=== PATIENT | female | born 1965 | race African-American/Black ===

== ENCOUNTER 2019-07-07 22:39 | Inpatient (IN) | payer MEDICARE, OTHER ==
[~2019-07-07] VITALS: Ht 170.2 cm; Wt 59.0 kg
[2019-07-07 23:18] LABS: BASOPHILS # (AUTO) 0.1 /CMM (0.0-0.2); BASOPHILS % (AUTO) 0.6 % (0.0-2.0); EOSINOPHILS % (AUTO) 0.2 % (0.0-6.0); HEMATOCRIT 36 % (33-45); LYMPHOCYTES # (AUTO) 2.9 /CMM (0.8-4.8); MEAN CORPUSCULAR HGB CONC 33 g/dl (31.0-36.0); MEAN CORPUSCULAR VOLUME 93 fL (82-100); MONOCYTES # (AUTO) 0.8 /CMM (0.1-1.30); MONOCYTES % (AUTO) 6.5 % (2.0-12.0); NEUTROPHILS # (AUTO) 7.9 /CMM (1.8-8.9); NEUTROPHILS % (AUTO) 67.7 % (43.0-81.0); PLATELET COUNT (AUTO) 210 /CMM (150-450); RED BLOOD CELL COUNT(AUTO) 3.89 MIL/uL (4.0-5.2); WHITE BLOOD COUNT (AUTO) 11.7 K/uL (4.3-11.0)
[2019-07-07] MEDS ORDERED: LORAZEPAM 1 MG TABLET ONE (23:18)
--- NOTE | 2019-07-07 23:20 | NUR ---
PATIENT BIB EMS FOR MEDICAL CLEARANCE FOR GERIATRIC PSYCHIATRIC ADMISSION. PATIENT IS PLACED ON A 5150 FOR DTS AND GRAVELY DISABLED. PT DENIES SUICIDAL THOUGHTS NOR DOES SHE HAVE A PLAN. PT HAS HX OF BIPOLAR DISORDER AND IS TAKING MEDICATIONS FOR IT. AAOX2. PATIENT IS ANXIOUS. NO SOB. BREATHING EVENLY AND UNLABORED. CONNECTED TO MONITOR
[2019-07-07 23:26] LABS: CALCIUM, SERUM 9.6 mg/dL (8.5-10.1); CARBON DIOXIDE 25 mmol/L (21-32); CHLORIDE 104 mmol/L (98-107); CREATININE 1.1 mg/dL (0.6-1.3); GLUCOSE 100 mg/dL (74-106); POTASSIUM 3.6 mmol/L (3.5-5.1); SODIUM SERUM 142 mmol/L (136-145); UREA NITROGEN, BLOOD 16 mg/dL (7-18)
[2019-07-07] MEDS ORDERED: LORAZEPAM 1 MG TABLET PO ONE (23:30)
--- NOTE | 2019-07-07 23:30 | NUR ---
PATIENT IS CURRENTLY UNABLE TO PROVIDE A URINE SAMPLE.
[2019-07-07 23:31] LABS: ACETAMINOPHEN 0 ug/ml (10-30); ALANINE AMINOTRANSFERASE 27 U/L (12-78); ALCOHOL, BLOOD < 3 mg/dL (0-0); ALKALINE PHOSPHATASE 78 U/L (46-116); ASPARTATE AMINOTRANSFERASE 52 U/L (15-37); BILIRUBIN,DIRECT 0.2 mg/dL (0.0-0.2); BILIRUBIN,TOTAL 0.8 mg/dL (0.2-1.0); SALICYLATE 2.3 mg/dL (2.8-20.0); TOTAL PROTEIN, SERUM 7.4 g/dL (6.4-8.2)
--- NOTE | 2019-07-07 23:52 | NUR ---
URINE RETRIEVED AND SENT TO LAB
[2019-07-07 23:55] LABS: BILIRUBIN,URINE MODERATE (NEGATIVE); BLOOD, URINE Trace-intact Ery/uL (NEGATIVE); COLOR,URINE Dark (YELLOW); KETONES,URINE 15 (NEGATIVE); LEUKOCYTE ESTERASE ,URINE Negative (NEGATIVE); NITRITE, URINE Negative (NEGATIVE); PROTEIN,URINE 30 mg/dl (NEGATIVE); UGLUCOSE Negative (NEGATIVE)
[2019-07-07 23:56] LABS: APPEARANCE,URINE CLOUDY (CLEAR)
[2019-07-08] MEDS ORDERED: LORAZEPAM 1 MG TABLET PO ONE
[2019-07-08] MEDS ORDERED: LORAZEPAM 1 MG TABLET ONE (00:06)
[2019-07-08] MEDS ORDERED: CLONIDINE HCL 0.1 MG TABLET PO PRN (00:30)
--- NOTE | 2019-07-08 00:32 | NUR ---
Report given Novem RN for sonali.
[2019-07-08 01:00] VITALS: BP 158/81
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
[2019-07-08 01:14] LABS: BACTERIA,URINE Few /HPF (None Seen); SQUAMOUS EPITHELIAL CELL,UR Few /HPF (None Seen)
[2019-07-08] MEDS ORDERED: MAG HYDROX/AL HYDROX/SIMETH 30 ML UDC PO PRN (01:30)
[2019-07-08] MEDS ORDERED: ACETAMINOPHEN 325 MG TABLET PO PRN (01:30)
[2019-07-08] MEDS ORDERED: BLOOD SUGAR DIAGNOSTIC 1 EACH STRIP IN ONE (01:30)
[2019-07-08] MEDS ORDERED: MAGNESIUM HYDROXIDE 30 ML UDC PO PRN (01:30)
[2019-07-08] MEDS ORDERED: LORAZEPAM 0.5 MG TABLET PO PRN (01:30)
[2019-07-08] MEDS: AMLODIPINE BESYLATE 5 MG TABLET PO SCH ×2 (01:38→08:19)
[2019-07-08] MEDS ORDERED: HALO0.5T2 PO (04:40)
[2019-07-08] MEDS ORDERED: DIVA500T2 PO ×2 (04:40)
[2019-07-08] MEDS ORDERED: RISP0.5T5 PO (04:40)
[2019-07-08] MEDS ORDERED: IPRA12.9 INH (04:52)
[2019-07-08 08:00] VITALS: BP 157/80
--- NOTE | 2019-07-08 15:38 | NUR ---
Family Contact: SW contacted the pts son, Marcelo ([phone]), but the number was not authorized.
[2019-07-08 16:00] VITALS: BP 165/67
--- NOTE | 2019-07-08 16:12 | NUR ---
Initial Discharge Plan: Pt currently resides at [address] [place] [address], [address] [place] [address]; ([phone]) with her two sons. Per pt, she would like to live in a facility. SW will work with the pt and the MD regarding appropriate discharge planning. SW will form a safe and proper discharge.
[2019-07-08] MEDS: risperiDONE 1 MG TABLET PO SCH (16:15)
[2019-07-08 20:00] VITALS: BP 143/81
[2019-07-08 20:14] VITALS: BP 143/81
[2019-07-08] MEDS: LORAZEPAM 0.5 MG TABLET PO PRN (20:42)
--- NOTE | 2019-07-08 20:42 | NUR ---
senior courtroom clerk notes pt looked anxious , ativan 1 mg po given as ordered, re-oriented where she at .assisted back to her bed safety precaution implemented and observed. will continue monitoring.
[2019-07-08] MEDS: ZOLPIDEM TARTRATE 5 MG TABLET PO PRN (21:31)
[2019-07-08] MEDS: DIVALPROEX SODIUM 500 MG TABLET.DR PO SCH (21:31)
[2019-07-09] MEDS: LORAZEPAM 0.5 MG TABLET PO PRN (03:39)
--- NOTE | 2019-07-09 03:39 | NUR ---
spar cap beveler notes pt woke up and seem very anxious, re-direct and re-oriented where she at. Ativan 1 mg po given as ordered. will continue monitoring. safety precaution implemented and observed.
--- NOTE | 2019-07-09 04:52 | NUR ---
PESTICIDE USE MEDICAL COORDINATOR NOTES CHECKED PT IN HER ROOM AND SEEN SLEEPING AT THIS TIME AFTER ATIVAN GIVEN ORDERED. BREATHING EVEN AND NON-LABORED. KEPT HER WARM AND COMFORTABLE AT ALL TIMES. WILL CONTINUE MONITORING.
[2019-07-09 08:00] VITALS: BP 155/73
[2019-07-09] MEDS: risperiDONE 1 MG TABLET PO SCH ×2 (08:21→17:04)
[2019-07-09] MEDS: DIVALPROEX SODIUM 500 MG TABLET.DR PO SCH ×2 (08:21→20:34)
[2019-07-09] MEDS: AMLODIPINE BESYLATE 5 MG TABLET PO SCH (08:21)
[2019-07-09] MEDS: SERTRALINE HCL 25 MG TABLET PO SCH (08:22)
[2019-07-09 09:52] LABS: CHOLESTEROL 200 mg/dL (<200); HDL CHOLESTEROL 77 mg/dL (40-60); LDL 98 mg/dL (0-99); TRIGLYCERIDES 60 mg/dL (30-150)
--- NOTE | 2019-07-09 11:22 | NUR ---
Family Contact: SW called the pts daughter in law, Catalina ([phone]), and left a voicemail stating that the SW would like to speak to her regarding the pts discharge and treatment.
--- NOTE | 2019-07-09 12:05 | NUR ---
Family Contact: Pts daughter in law, Catalina ([phone]), called the SW and stated that the pt was previously at [facility] and that they would like the pt to return there for a few months for further stabilization.
[2019-07-09 16:00] VITALS: BP 120/76
[2019-07-09 20:34] VITALS: BP 137/66
[2019-07-09] MEDS: ZOLPIDEM TARTRATE 5 MG TABLET PO PRN (21:11)
--- NOTE | 2019-07-09 21:26 | NUR ---
GPS RN NOTES: PT UNABLE TO SLEEP. OFFERED AMBIEN 5MG PO PRN ORDERED. PT AGREED AND TOLERATED MEDICATION. CONTINUE TO MONITOR.
[2019-07-10] MEDS: LORAZEPAM 0.5 MG TABLET PO PRN ×2 (03:39→13:04)
--- NOTE | 2019-07-10 03:42 | NUR ---
GPS RN NOTES: PT WOKE UP. WALKING BACK AND FORTH IN HER ROOM SPEAKING RANDOM WORDS THAT IS HARD TO COMPREHEND. PT SEEMED ANXIOUS. REDIRECTED AND REORIENTED WHERE SHE IS AT. ATIVAN 1MG PRN PO ADMINISTERED ORDERED. WILL CONTINUE TO MONITOR.
[2019-07-10 08:00] VITALS: BP 126/63
[2019-07-10] MEDS: risperiDONE 1 MG TABLET PO SCH ×2 (08:06→17:41)
[2019-07-10] MEDS: SERTRALINE HCL 25 MG TABLET PO SCH (08:06)
[2019-07-10] MEDS: AMLODIPINE BESYLATE 5 MG TABLET PO SCH (08:07)
[2019-07-10] MEDS: DIVALPROEX SODIUM 500 MG TABLET.DR PO SCH ×2 (08:07→20:51)
[2019-07-10] MEDS ORDERED: VITAMINS A AND D 56.7 GM TUBE TP PRN (09:30)
--- NOTE | 2019-07-10 10:46 | NUR ---
SNF Referral: SW faxed a long term facility (SNF) referral to the following facilities listed below: [facility] with attention to Riaz to the fax number: [phone] [facility] with attention to Bobby to the fax number: [phone].
--- NOTE | 2019-07-10 13:05 | NUR ---
RN NOTE- PT WITH AGITATION. MILD. FEELING "NOT QUITE RIGHT..." ATIVAN 1 MG PO PRN GIVEN.
--- NOTE | 2019-07-10 15:07 | NUR ---
Individual Intervention: SW spoke to the pt regarding her discharge to a fpc facility and the pt stated that [facility] had "too many old people" and therefore she would like a facility that is different and that Dr. eGrardo attends. NICKO stated that she would speak to the MD.
[2019-07-10 16:00] VITALS: BP 125/66
[2019-07-10] MEDS: ZOLPIDEM TARTRATE 5 MG TABLET PO PRN (20:51)
--- NOTE | 2019-07-10 20:53 | NUR ---
GPS RN NOTES: PT UNABLE TO SLEEP. OFFERED AMBIEN 5MG PO PRN ORDERED. PT AGREED AND TOLERATED MEDICATION. CONTINUE TO MONITOR.
[2019-07-10 21:00] VITALS: BP 135/66
[2019-07-11] MEDS: LORAZEPAM 0.5 MG TABLET PO PRN ×2 (03:52→12:34)
--- NOTE | 2019-07-11 03:55 | NUR ---
GPS RN NOTES: PT WOKE UP. WALKING BACK AND FORTH IN HER ROOM AND THE IN THE HALLWAY. PT IS GOING IN AND OUT OF OTHER PTS ROOM. SPEAKING RANDOM WORDS THAT IS HARD TO COMPREHEND. PT REPEATS WORDS WHEN SPOKEN TO. PT SEEMED ANXIOUS. REDIRECTED AND REORIENTED WHERE SHE IS AT. ATIVAN 1MG PRN PO ADMINISTERED ORDERED. WILL CONTINUE TO MONITOR.
[2019-07-11] MEDS: AMLODIPINE BESYLATE 5 MG TABLET PO SCH (08:21)
[2019-07-11] MEDS: DIVALPROEX SODIUM 500 MG TABLET.DR PO SCH ×2 (08:22→21:08)
[2019-07-11] MEDS: SERTRALINE HCL 25 MG TABLET PO SCH (08:22)
[2019-07-11] MEDS: risperiDONE 1 MG TABLET PO SCH ×2 (08:22→16:20)
[2019-07-11 16:00] VITALS: BP 124/81
[2019-07-11 20:10] VITALS: BP 131/51
[2019-07-11] MEDS: ZOLPIDEM TARTRATE 5 MG TABLET PO PRN (21:09)
[2019-07-12 08:00] VITALS: BP 134/71
[2019-07-12] MEDS: risperiDONE 1 MG TABLET PO SCH ×2 (08:23→16:53)
[2019-07-12] MEDS: DIVALPROEX SODIUM 500 MG TABLET.DR PO SCH ×2 (08:23→21:22)
[2019-07-12] MEDS: SERTRALINE HCL 25 MG TABLET PO SCH (08:23)
[2019-07-12] MEDS: AMLODIPINE BESYLATE 5 MG TABLET PO SCH (08:23)
[2019-07-12] MEDS: LORAZEPAM 0.5 MG TABLET PO PRN ×2 (12:41→22:27)
--- NOTE | 2019-07-12 12:44 | NUR ---
RN NOTE- PT PACING HALLS, GARBLED SPEECH, WORD SALAD AT TIMES. ANXIOUS. AH PRESENT AND ADMITTED... THOUGH UNKNOWN CONTENT. WONT ELABORATE. ATIVAN 1 MG PO GIVEN . MONITORING
[2019-07-12 16:00] VITALS: BP 130/86
[2019-07-12 20:01] VITALS: BP 162/75
[2019-07-12 22:15] VITALS: BP 137/77
--- NOTE | 2019-07-12 22:30 | NUR ---
GPS RN NOTE PATIENT IS PACING IN THE HALLWAY ANXIOUSLY, ATIVAN 1 MG PRN GIVEN. WILL MONITOR CLOSELY.
[2019-07-12] MEDS: ZOLPIDEM TARTRATE 5 MG TABLET PO PRN (23:37)
--- NOTE | 2019-07-12 23:41 | NUR ---
PRN AMBIEN GIVEN PATIENT IS UNABLE TO SLEEP AT THIS TIME, KEEP PACING THE HALLWAY CONSISTENTLY. PRN AMBIEN 5MG PRN GIVEN. WILL REASSESS FOR EFFECTIVENESS.
[2019-07-13 08:00] VITALS: BP 115/63
[2019-07-13] MEDS: risperiDONE 1 MG TABLET PO SCH ×2 (09:13→16:04)
[2019-07-13] MEDS: AMLODIPINE BESYLATE 5 MG TABLET PO SCH (09:14)
[2019-07-13] MEDS: SERTRALINE HCL 25 MG TABLET PO SCH (09:14)
[2019-07-13] MEDS: LORAZEPAM 0.5 MG TABLET PO PRN (09:14)
[2019-07-13] MEDS: DIVALPROEX SODIUM 500 MG TABLET.DR PO SCH ×2 (09:14→20:51)
--- NOTE | 2019-07-13 15:39 | NUR ---
Group Note: SW went to patient's room to invite patient to attend today's support group at 1:00pm regarding holiday sensory activity being held in the activities room. Patient refused to participate in the group activity. The pt. is restless, anxious and pacing the halls. The pt. would come into the activities room and engage in the group conversation sporadically for short periods of time.
[2019-07-13 16:00] VITALS: BP 128/64
[2019-07-13 20:28] VITALS: BP 164/83
[2019-07-13 20:49] VITALS: BP 120/65
[2019-07-14 08:00] VITALS: BP 152/74
--- NOTE | 2019-07-14 08:46 | NUR ---
SNF Contact: Alba ([phone]) from [facility] contacted the SW and stated that the pt was accepted to their facility.
[2019-07-14] MEDS: LORAZEPAM 0.5 MG TABLET PO PRN (09:28)
[2019-07-14] MEDS: risperiDONE 1 MG TABLET PO SCH ×2 (09:29→16:50)
[2019-07-14] MEDS: SERTRALINE HCL 25 MG TABLET PO SCH (09:29)
[2019-07-14] MEDS: DIVALPROEX SODIUM 500 MG TABLET.DR PO SCH ×2 (09:29→20:47)
[2019-07-14] MEDS: AMLODIPINE BESYLATE 5 MG TABLET PO SCH (09:29)
--- NOTE | 2019-07-14 13:23 | NUR ---
Family Contact: SW called the pts daughter in law, Catalina ([phone]), and informed her that the pt is going to be discharged to [facility] tomorrow. She agreed to the placement.
[2019-07-14 16:00] VITALS: BP 156/60
[2019-07-14 16:43] VITALS: BP 156/60
[2019-07-14 20:43] VITALS: BP 147/61
[2019-07-14] MEDS: ZOLPIDEM TARTRATE 5 MG TABLET PO PRN (22:57)
--- NOTE | 2019-07-14 23:00 | NUR ---
GPS RN NOTES: PT UNABLE TO SLEEP. OFFERED AMBIEN 5MG PO PRN ORDERED. PT AGREED AND TOLERATED MEDICATION. CONTINUE TO MONITOR.
[2019-07-15 08:00] VITALS: BP 115/66
[2019-07-15 10:01] VITALS: BP 115/66
[2019-07-15] MEDS: risperiDONE 1 MG TABLET PO SCH (10:01)
[2019-07-15] MEDS: DIVALPROEX SODIUM 500 MG TABLET.DR PO SCH (10:01)
[2019-07-15] MEDS: SERTRALINE HCL 25 MG TABLET PO SCH (10:01)
[2019-07-15] MEDS: AMLODIPINE BESYLATE 5 MG TABLET PO SCH (10:01)
--- NOTE | 2019-07-15 12:01 | NUR ---
Discharge Note: Pt was discharged to [facility] (SNF) [place] at [address] [place] [address]; ([phone]). Pt was transported via [facility] at 2PM. Pts daughter in law, Catalina ([phone]), was notified of the placement. Upon discharge, the pt presented with a euthymic mood and presented with a distressed affect. Pt denied both suicidal and homicidal ideation as well as auditory and visual hallucinations. Pt will continue to be under the care of her psychiatrist, Dr. Gerardo, located at [address], [place] [address]; and her sweeper operator highways, Dr. Phillips, located at [address] [address], [address], [place] [address], .
--- NOTE | 2019-07-15 13:20 | NUR ---
53 year old female discharged to SNF in stable condition. Compliant with medications, cooperative with treatment plans. Patient denies SI/HI and instructed to go to the closest ER if developing SI/HI. Behavior improved as evidenced by patient eating full meals, sleeping throughout the night and being compliant with medications. Psychiatric treatment plans met, medical tx plans deferred for continual monitoring. Educated patient about after care plan and copy provided. Returned personal belongings to patient. Medications reconciled with Dr. Gerardo and Dr. Phillips. Report given to [facility] located at [address] [place] [address]. Patient signed discharge paperwork. Skin is intact. Patient left the unit at 1310 via ambulance. trip number [id number]
== END 2019-07-15 13:10 | DRG 885 ==
LOC: ER 22:48 → GPS 07-08 00:04
PROVIDERS: ADMIT Psychiatry & Neurology Psychiatry; ATTEND Nurse Practitioner Acute Care
DX: F25.0 Schizoaffective disorder, bipolar type (principal); R45.851 Suicidal ideations; F41.9 Anxiety disorder, unspecified; I10 Essential (primary) hypertension; E78.5 Hyperlipidemia, unspecified; Z91.19 Patient's noncompliance with other medical treatment and regimen; Z81.8 Family history of other mental and behavioral disorders
CPT/HCPCS: 36415; 80048-TC; 80061-TC; 80076-TC; 80164-TC; 80305; 81000-TC; 82565-TC; 82962-TC; 85025-TC; 87081-TC; G0480

== ENCOUNTER 2019-08-06 14:53 | Inpatient (IN) | payer MEDICARE, OTHER ==
[~2019-08-06] VITALS: Ht 172.7 cm; Wt 68.0 kg
[~2019-08-06 14:53] MED LIST: IPRA12.9 INH
--- NOTE | 2019-08-06 15:06 | NUR ---
BIB [facility] FOR PSYCH EVAL. +HEARING VOICES, AGRESSIVE TO STAFF. PATIENT A/OX3, BREATHING EVEN AND UNLABORED, NASAL CONGESTION. NO DISTRESS NOTED, VITALS STABLE.
--- NOTE | 2019-08-06 15:25 | NUR ---
CALLED [facility] [phone] ETA 60 MINS
[2019-08-06] MEDS ORDERED: BISA10SU11 RC (15:27)
[2019-08-06] MEDS ORDERED: AMLO5TAB4 PO (15:27)
[2019-08-06] MEDS ORDERED: DIVA500T2 PO (15:27)
[2019-08-06] MEDS ORDERED: SERT25TA PO (15:27)
[2019-08-06] MEDS ORDERED: MULT-447 PO (15:27)
[2019-08-06] MEDS ORDERED: ZOLP5TAB2 PO (15:27)
[2019-08-06] MEDS ORDERED: DOCU-141 PO (15:27)
[2019-08-06] MEDS ORDERED: ACET-868 PO (15:27)
[2019-08-06] MEDS ORDERED: CLON0.1T PO (15:27)
[2019-08-06] MEDS ORDERED: LORA-259 PO (15:27)
[2019-08-06] MEDS ORDERED: MAGN400O6 PO (15:27)
[2019-08-06] MEDS ORDERED: NA P133E RC (15:27)
[2019-08-06] MEDS ORDERED: RISP0.2515 PO (15:27)
[2019-08-06] MEDS ORDERED: AMIN887L PO (15:27)
[2019-08-06] MEDS ORDERED: NICO-627 TD (15:27)
[2019-08-06] MEDS ORDERED: IV NS 0.9% 1,000 ML BAG IV ONE (15:30)
[2019-08-06 15:34] LABS: BASOPHILS % (AUTO) 0.6 % (0.0-2.0); EOSINOPHILS % (AUTO) 1.1 % (0.0-6.0); HEMATOCRIT 37 % (33-45); HEMOGLOBIN 12.1 g/dL (11.5-14.8); LYMPHOCYTES # (AUTO) 1.3 /CMM (0.8-4.8); LYMPHOCYTES % (AUTO) 17.2 % (20.0-44.0); MEAN CORPUSCULAR HGB CONC 33 g/dl (31.0-36.0); MEAN CORPUSCULAR VOLUME 94 fL (82-100); MONOCYTES # (AUTO) 1.1 /CMM (0.1-1.30); MONOCYTES % (AUTO) 14.6 % (2.0-12.0); NEUTROPHILS % (AUTO) 66.5 % (43.0-81.0); PLATELET COUNT (AUTO) 152 /CMM (150-450); WHITE BLOOD COUNT (AUTO) 7.5 K/uL (4.3-11.0)
--- NOTE | 2019-08-06 15:34 | NUR ---
PATIENT ASSISTED TO RESTROOM.
[2019-08-06 15:42] LABS: CALCIUM, SERUM 9.2 mg/dL (8.5-10.1); CARBON DIOXIDE 32 mmol/L (21-32); CHLORIDE 104 mmol/L (98-107); CREATININE 0.9 mg/dL (0.6-1.3); GLUCOSE 95 mg/dL (74-106); POTASSIUM 4.1 mmol/L (3.5-5.1); SODIUM SERUM 138 mmol/L (136-145); UREA NITROGEN, BLOOD 14 mg/dL (7-18)
[2019-08-06 15:48] LABS: ACETAMINOPHEN < 10 ug/ml (10-30); ALANINE AMINOTRANSFERASE 16 U/L (12-78); ALBUMIN 3.1 g/dL (3.4-5.0); ALCOHOL, BLOOD < 3 mg/dL (0-0); ALKALINE PHOSPHATASE 71 U/L (46-116); ASPARTATE AMINOTRANSFERASE 15 U/L (15-37); BILIRUBIN,TOTAL 0.2 mg/dL (0.2-1.0); SALICYLATE 1.1 mg/dL (2.8-20.0); TOTAL PROTEIN, SERUM 6.8 g/dL (6.4-8.2)
--- NOTE | 2019-08-06 16:15 | NUR ---
URINE SENT TO LAB
--- NOTE | 2019-08-06 16:20 | NUR ---
[place] IRRIGATION SUPERVISOR AT BEDSIDE FOR EVAL.
[2019-08-06 16:22] LABS: APPEARANCE,URINE Clear (CLEAR); BILIRUBIN,URINE Negative (NEGATIVE); BLOOD, URINE Negative Ery/uL (NEGATIVE); COLOR,URINE Yellow (YELLOW); KETONES,URINE Negative (NEGATIVE); LEUKOCYTE ESTERASE ,URINE Negative (NEGATIVE); NITRITE, URINE Negative (NEGATIVE); PH,URINE 8.5 (5.0-8.0); PROTEIN,URINE Negative (NEGATIVE); UGLUCOSE Negative (NEGATIVE); UROBILINOGEN,URINE 0.2 EU/dL (0.2)
--- NOTE | 2019-08-06 17:14 | NUR ---
GOT GPS BED 215-1
--- NOTE | 2019-08-06 17:22 | NUR ---
REPORT GIVEN TO JOSE RAUL MEJÍA.
--- NOTE | 2019-08-06 17:36 | NUR ---
PATIENT TRANSFERRED TO [facility] IN TABLE CONDITION, NO DISTRESS NOTED, NEEDS ATTENDED. IV removed. Catheter intact and site benign. Pressure and 4x4 applied to site. No bleeding noted.
[2019-08-06] MEDS ORDERED: CLONIDINE HCL 0.1 MG TABLET PO PRN (18:30)
[2019-08-06] MEDS ORDERED: MAG HYDROX/AL HYDROX/SIMETH 30 ML UDC PO PRN (18:30)
[2019-08-06] MEDS ORDERED: BISACODYL SUPP (10 MG) 10 MG/SUPP.RECT SUPP.RECT RC PRN (18:30)
[2019-08-06] MEDS ORDERED: ACETAMINOPHEN 325 MG TABLET PO PRN (18:30)
[2019-08-06] MEDS ORDERED: MAGNESIUM HYDROXIDE 30 ML UDC PO PRN (18:30)
[2019-08-06] MEDS ORDERED: BLOOD SUGAR DIAGNOSTIC 1 EACH STRIP IN ONE (18:30)
[2019-08-06 18:41] VITALS: BP 143/97
--- NOTE | 2019-08-06 18:50 | NUR ---
RN-CO: Called Dr Gerardo and gave order to admit patient, noted and carried out. Advisement was given to the patient.
--- NOTE | 2019-08-06 18:51 | NUR ---
RN-CO: Patient refused blood sugar check.
[2019-08-06 20:18] VITALS: BP_SYST 155; BP_SYST 164; BP_DIAS 74; BP_DIAS 85
[2019-08-06 22:30] VITALS: BP 145/91
[2019-08-06 22:59] VITALS: BP 145/91
[2019-08-07 00:02] VITALS: BP 145/91
[2019-08-07 00:04] VITALS: BP 164/74
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
[2019-08-07 07:12] LABS: ALBUMIN 3.1 g/dL (3.4-5.0); BILIRUBIN,TOTAL 0.2 mg/dL (0.2-1.0); CALCIUM, SERUM 9.1 mg/dL (8.5-10.1); CREATININE 0.6 mg/dL (0.6-1.3); POTASSIUM 3.5 mmol/L (3.5-5.1); TOTAL PROTEIN, SERUM 6.8 g/dL (6.4-8.2)
[2019-08-07 08:00] VITALS: BP 163/73
[2019-08-07] MEDS: NICOTINE PATCH (21MG) 21 MG PATCH.TD24 TD SCH ×2 (09:00→10:02)
[2019-08-07] MEDS: DIVALPROEX SODIUM 500 MG TABLET.DR PO SCH ×2 (09:57→20:34)
[2019-08-07] MEDS: risperiDONE 1 MG TABLET PO SCH ×2 (09:57→17:35)
[2019-08-07] MEDS: AMLODIPINE BESYLATE 5 MG TABLET PO SCH (09:57)
[2019-08-07] MEDS: SERTRALINE HCL 25 MG TABLET PO SCH (09:57)
--- NOTE | 2019-08-07 10:36 | NUR ---
WOUND CARE CONSULT: PT PRESENTS WITH VERY DRY SKIN ON FEET. RECOMMEND EUCERIN CREAM. DISCUSSED WITH NURSING STAFF. PT IS INDEPENDENT WITH BED MOBILITY AND CONTINENT. WILL SEE PRN.
--- NOTE | 2019-08-07 10:40 | NUR ---
Family Contact: NICKO contacted the pts son, Marcelo ([phone]), and discussed the initial treatment and discharge plan. He was informed that the pt will be able to return back to [facility].
[2019-08-07] MEDS: MINERAL OIL/PETROLATUM,WHITE 120 GM JAR TP SCH (11:00)
--- NOTE | 2019-08-07 11:05 | NUR ---
Initial Discharge Plan: Pt currently resides at [facility] located at [address] [place] [address]; ([phone]). Per pt, she does not know where she wants to be discharged. NICKO contacted Alba ([phone]) from [facility] and she stated that the pt can return to the facility. NICKO will work with the pt and the MD regarding appropriate discharge planning. NICKO will form a safe and proper discharge.
--- NOTE | 2019-08-07 11:06 | NUR ---
Facility Contact: NICKO contacted Alba ([phone]) from [facility] and she stated that the pt can return to the facility once she is stable.
[2019-08-07 16:00] VITALS: BP 164/88
[2019-08-07] MEDS: MULTIVIT W/MINERALS 1 TAB TABLET PO SCH (17:35)
[2019-08-07] MEDS: DOCUSATE SODIUM 100 MG CAPSULE PO SCH (17:42)
[2019-08-07 20:24] VITALS: BP 122/69
[2019-08-08] MEDS: LORAZEPAM 0.5 MG TABLET PO PRN (03:20)
[2019-08-08 08:00] VITALS: BP 118/65
[2019-08-08] MEDS: NICOTINE PATCH (21MG) 21 MG PATCH.TD24 TD SCH ×3 (08:08→10:33)
[2019-08-08] MEDS: SERTRALINE HCL 25 MG TABLET PO SCH ×3 (08:08→10:32)
[2019-08-08] MEDS: DIVALPROEX SODIUM 500 MG TABLET.DR PO SCH ×4 (08:08→21:32)
[2019-08-08] MEDS: risperiDONE 1 MG TABLET PO SCH ×4 (08:08→17:00)
[2019-08-08] MEDS: AMLODIPINE BESYLATE 5 MG TABLET PO SCH ×3 (08:09→10:33)
[2019-08-08] MEDS: MINERAL OIL/PETROLATUM,WHITE 120 GM JAR TP SCH (08:10)
[2019-08-08] MEDS: FLUTICASONE PROPIONATE 16 GM BOTTLE NS SCH ×2 (08:10→17:00)
--- NOTE | 2019-08-08 10:30 | NUR ---
PATIENT FOUND ON FLOOR. SHE STATED SHE FELL AND HIT HER HEAD. CONTACTING DR. SINGH Addendum: 08/08/19 at 1050 by NICOLE LIND RN VSS. DENIES PAIN. NO INJURY NOTED. 124/79 HR 118 Addendum: 08/08/19 at 1059 by NICOLE LIND RN ONCE PATIENT WAS FOUND ON FLOOR WITH UNWITNESSED FALL PATIENT WAS ASSISTED TO STANDING. SKIN INTACT. NEURO CHECK COMPLETE AND INTACT. PATIENT AMBULATED WITH STEADY GAIT TO ACTIVITY ROOM AND SAT IN CHAIR. PATIENT DENIES PAIN. PATIENT WAS EVALUATED FOR INJURY AND NONE NOTED. VITAL SIGNS REMAIN STABLE. SHE IS AOX3. IN NO SIGNS OF DISTRESS. DR. SINGH NOTIFIED. PSYCHIARIST DR. JADE NOTIFIED. SON, COURTNEY FERRER, ATTEMPTED TO BE NOTIFIED. LEFT VOICEMAIL TO RETURN CALL TO [facility].
--- NOTE | 2019-08-08 10:33 | NUR ---
PATIENT REFUSED MEDS AT 0900. AGREED TO TAKE MEDICATION LATE AT 1033.
--- NOTE | 2019-08-08 14:45 | NUR ---
2 MANAGER FIXED INCOME'S SAW PT. THAT SHE INTENTIONALLY DROP HERSELF TO THE FLOOR IN THE HALLWAY. STAFF SPOKE TO PT. TO PREVENT HARM AND WILL CONTINUE TO MONITOR FOR SAFETY.
[2019-08-08 16:00] VITALS: BP 120/78
[2019-08-08] MEDS: MULTIVIT W/MINERALS 1 TAB TABLET PO SCH (17:00)
[2019-08-08] MEDS: DOCUSATE SODIUM 100 MG CAPSULE PO SCH (17:20)
--- NOTE | 2019-08-08 17:20 | NUR ---
PT REFUSED 1700 MEDICATIONS. SHE STATED SHE DOES NOT WANT TO TAKE MEDICATION. SHE IS AGITATED AND RESPONDING TO INTERNAL STIMULI AT THIS TIME.
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
[2019-08-08] MEDS ORDERED: OLANZAPINE 10 MG VIAL IM ONE (18:30)
[2019-08-08] MEDS ORDERED: LORAZEPAM INJ 2 MG/ML VIAL IM ONE (18:30)
--- NOTE | 2019-08-08 19:35 | NUR ---
GPS RN NOTE RECEIVED PATIENT SITTING IN A MICHAEL CHAIR, RESTLESS, ANXIOUS, AGITATED, GAVE SNACK & JUICE, REDIRECTABLE AT THIS TIME, PT WANTED TO GET UP FROM MICHAEL CHAIR, ASSISTED HER TO DAY ROOM UNDER SUPERVISION. WATCHING TV. NO ACUTE DISTRESS NOTED. BREATHING NORMAL & UNLABORED.NO C/O PAIN VERBALIZED. SAFETY MEASURES IN PLACE. WILL CONTINUE TO MONITOR CLOSELY FOR SAFETY & BEHAVIOR.
[2019-08-08 20:00] VITALS: BP 141/64
[2019-08-08 22:45] VITALS: BP 136/65
[2019-08-08] MEDS: ZOLPIDEM TARTRATE 5 MG TABLET PO PRN (23:04)
--- NOTE | 2019-08-08 23:04 | NUR ---
PRN AMBIEN GIVEN PATIENT IS UNABLE TO SLEEP, PRN AMBIEN 5 MG PO GIVEN. WILL REASSESS FOR EFFECTIVENESS.
--- NOTE | 2019-08-09 00:05 | NUR ---
GPS RN NOTE PATIENT IS AWAKE, UP IN MICHAEL CHAIR, RELAXED BUT EASILY AGITATED. REDIRECTABLE AT THIS TIME. REFUSES TO GO TO BED AT THIS TIME. WILL CONTINUE TO MONITOR FOR SAFETY & BEHAVIOR.
--- NOTE | 2019-08-09 04:09 | NUR ---
GPS RN NOTE PATIENT HAS BEEN SLEEPING COMFORTABLY. WILL CONTINUE TO MONITOR.
--- NOTE | 2019-08-09 06:14 | NUR ---
GPS RN NOTE PATIENT IS SLEEPING AT THIS TIME.
[2019-08-09] MEDS ORDERED: OLANZAPINE 5 MG/TAB.RAPDIS PO STA (07:49)
[2019-08-09] MEDS ORDERED: LORAZEPAM 0.5 MG TABLET PO STA (07:51)
[2019-08-09 08:00] VITALS: BP 124/75
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
[2019-08-09] MEDS ORDERED: OLANZAPINE 10 MG VIAL IM STA (08:11)
[2019-08-09] MEDS ORDERED: LORAZEPAM INJ 2 MG/ML VIAL IM STA (08:11)
[2019-08-09] MEDS: AMLODIPINE BESYLATE 5 MG TABLET PO SCH (08:32)
[2019-08-09] MEDS: risperiDONE 1 MG TABLET PO SCH ×2 (08:33→17:00)
[2019-08-09] MEDS: SERTRALINE HCL 25 MG TABLET PO SCH (08:33)
[2019-08-09] MEDS: DIVALPROEX SODIUM 500 MG TABLET.DR PO SCH ×4 (08:33→17:00)
[2019-08-09] MEDS: MINERAL OIL/PETROLATUM,WHITE 120 GM JAR TP SCH (08:33)
[2019-08-09] MEDS: FLUTICASONE PROPIONATE 16 GM BOTTLE NS SCH ×2 (08:44→17:00)
[2019-08-09] MEDS: NICOTINE PATCH (21MG) 21 MG PATCH.TD24 TD SCH (08:45)
[2019-08-09 16:00] VITALS: BP 100/55
[2019-08-09] MEDS: MULTIVIT W/MINERALS 1 TAB TABLET PO SCH (17:00)
[2019-08-09] MEDS: DOCUSATE SODIUM 100 MG CAPSULE PO SCH (17:28)
--- NOTE | 2019-08-09 21:00 | NUR ---
GPS RN NOTE SKIN ASSESSMENT DONE BUT PATIENT GOT AGITATED, ANXIOUS, RESTLESS DURING ASSESSMENT & REFUSED FULL BODY ASSESSMENT. UNABLE TO TAKE LEFT ELBOW PICTURE & UPPER BODY. PT. IS VERY DELUSIONAL, HYPERVERBAL & PARANOID.
[2019-08-10] MEDS: LORAZEPAM 0.5 MG TABLET PO PRN ×2 (03:05→10:23)
--- NOTE | 2019-08-10 03:08 | NUR ---
PRN ATIVAN GIVEN PATIENT WOKE UP, VERY ANXIOUS, RESTLESS, PACING THE HALLWAY, PRN ATIVAN 1MG PO GIVEN. WILL CONTINUE TO MONITOR FOR SAFETY & BEHAVIOR.
--- NOTE | 2019-08-10 06:54 | NUR ---
GPS RN NOTE PATIENT IS RESTING IN BED, IN & OUT OF BED AT TIMES, REDIRECTABLE. PATIENT TRIES TO SIT ON THE FLOOR SYAS, " I WANT TO FALL TO JANELL". REORIENTATION PROVIDED. MONITORED CLOSELY FOR SAFETY & BEHAVIOR. WILL ENDORSE TO AM RN FOR CONTINUATION OF MONITORING.
[2019-08-10 08:00] VITALS: BP 138/98
[2019-08-10] MEDS: SERTRALINE HCL 25 MG TABLET PO SCH (09:05)
[2019-08-10] MEDS: risperiDONE 1 MG TABLET PO SCH ×2 (09:05→17:12)
[2019-08-10] MEDS: DIVALPROEX SODIUM 500 MG TABLET.DR PO SCH ×3 (09:05→17:12)
[2019-08-10] MEDS: AMLODIPINE BESYLATE 5 MG TABLET PO SCH (09:05)
[2019-08-10] MEDS: NICOTINE PATCH (21MG) 21 MG PATCH.TD24 TD SCH (09:06)
[2019-08-10] MEDS: FLUTICASONE PROPIONATE 16 GM BOTTLE NS SCH ×2 (09:06→17:12)
[2019-08-10] MEDS: MINERAL OIL/PETROLATUM,WHITE 120 GM JAR TP SCH (09:07)
--- NOTE | 2019-08-10 10:23 | NUR ---
RN NOTE: PT C/O ANXIETY. MED WITH ATIVAN 1MG PO
[2019-08-10] MEDS ORDERED: HALOPERIDOL LACTATE INJ 5 MG/ML VIAL IM STA (11:31)
[2019-08-10] MEDS ORDERED: diphenhydrAMINE HCL 50 MG/ML VIAL IM STA (11:31)
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
--- NOTE | 2019-08-10 11:53 | NUR ---
RN NOTE: PT JAMEEL IM MEDICATIONS WELL AND WELLINGLY. WILL CONT TO ASSESS FOR AGRESSIVE BX AND MEDICATIN EFFECTIVENESS.
--- NOTE | 2019-08-10 13:28 | NUR ---
RN NOTE: PT WALKING IN HALLWAY NAKED. UNABLE TO BE REDIRECTED. DR. MIRZA NOTIFIED. PT PLACED ON 1:1 STATUS.
[2019-08-10] MEDS ORDERED: OLANZAPINE 10 MG VIAL IM STA (15:38)
[2019-08-10] MEDS ORDERED: LORAZEPAM INJ 2 MG/ML VIAL IM STA (15:39)
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
[2019-08-10 16:00] VITALS: BP 143/64
[2019-08-10] MEDS: MULTIVIT W/MINERALS 1 TAB TABLET PO SCH (17:12)
[2019-08-10] MEDS: DOCUSATE SODIUM 100 MG CAPSULE PO SCH (17:43)
--- NOTE | 2019-08-10 19:58 | NUR ---
GPS RN NOTE DAUGHTER IN LAW TATY CALLED TO GET UPDATE ABOUT THE PATIENT BUT TATY IS NOT LISTED ON THE FACE SHEET TO RELEASE THE UPDATES ABOUT PATIENT'S HEALTH, SON OBEY CAME ON THE PHONE TO GET INFORMATION, INFORMED HIM ABOUT PATIENT'S BEHAVIOR ESCALATION TODAY PER AM RN REPORT. PATIENT IS SLEEPING AT THIS TIME. WILL CONTINUE TO MONITOR FOR SAFETY & BEHAVIOR.
[2019-08-10 20:00] VITALS: BP 150/63
[2019-08-10 20:39] VITALS: BP 150/63
[2019-08-10] MEDS: ZOLPIDEM TARTRATE 5 MG TABLET PO PRN (21:38)
--- NOTE | 2019-08-10 21:38 | NUR ---
PRN AMBIEN GIVEN PATIENT IS AWAKE, FEELING RESTLESS, PT. STATED SHE IS UNABLE TO SLEEP, PRN AMBIEN 5MG PO GIVEN.
[2019-08-10] MEDS: ACETAMINOPHEN 325 MG TABLET PO PRN (21:57)
--- NOTE | 2019-08-10 21:59 | NUR ---
PRN TYLENOL GIVEN PATIENT VERBALIZED HER BACK HURTS, UNABLE TO SCALE PAIN LEVEL DUE TO CONFUSION, NO S/S OF MODERATE OR SEVERE PAIN NOTED. PRN TYLENOL 650 MG PO GIVEN ORDERED. WILL CONTINUE TO MONITOR FOR SAFETY, COMFORT & BEHAVIOR.
--- NOTE | 2019-08-10 22:38 | NUR ---
GPS RN NOTE PATIENT IS STILL AWAKE, SITTING IN A MICHAEL CHAIR, ANXIOUS, RESPONDING TO INTERNAL STIMULI, REDIRECTABLE AT THIS TIME. SNACK & JUICE GIVEN & TOLERATED WELL. ON 1:1 SUPERVISION FOR SAFETY.
[2019-08-10 23:00] VITALS: BP 139/67
[2019-08-11] MEDS: LORAZEPAM 0.5 MG TABLET PO PRN (00:56)
--- NOTE | 2019-08-11 00:56 | NUR ---
PRN ATIVAN GIVEN PATIENT IS VERY ANXIOUS, RESTLESS, SCREAMING/YELLING AT THIS TIME. PRN ATIVAN 1 MG PO GIVEN. ON 1:1 SUPERVISION FOR SAFETY & BEHAVIOR.
--- NOTE | 2019-08-11 04:30 | NUR ---
GPS RN NOTE PATIENT IS SLEEPING COMFORTABLY AT THIS TIME. WILL CONTINUE TO MONITOR FO SAFETY & BEHAVIOR.
[2019-08-11 08:00] VITALS: BP 149/74
[2019-08-11] MEDS: risperiDONE 1 MG TABLET PO SCH ×2 (09:27→16:38)
[2019-08-11] MEDS: DIVALPROEX SODIUM 500 MG TABLET.DR PO SCH ×3 (09:27→16:38)
[2019-08-11] MEDS: MINERAL OIL/PETROLATUM,WHITE 120 GM JAR TP SCH (09:28)
[2019-08-11] MEDS: NICOTINE PATCH (21MG) 21 MG PATCH.TD24 TD SCH (09:28)
[2019-08-11] MEDS: AMLODIPINE BESYLATE 5 MG TABLET PO SCH (09:28)
[2019-08-11] MEDS: FLUTICASONE PROPIONATE 16 GM BOTTLE NS SCH ×2 (09:34→16:43)
[2019-08-11 16:00] VITALS: BP 154/78
[2019-08-11] MEDS: MULTIVIT W/MINERALS 1 TAB TABLET PO SCH (16:38)
--- NOTE | 2019-08-11 17:59 | NUR ---
RN NOTE- EUCERIN CREAM NOT IN CASSETTE. LOOKED THROUGH ENTIRE MED ROOM AND PTS ROOM. APPLIED THIS MORNING. UNABLE TO LOCATE. CALLED PHARMACY, STATED THERE WAS NONE AVAILABLE TONIGHT BUT WOULD BE HERE TOMORROW . WARRANTY ADMINISTRATOR NOTIFIED. STAFF INFORMED TO LOOK.
[2019-08-11] MEDS: DOCUSATE SODIUM 100 MG CAPSULE PO SCH (18:03)
[2019-08-11 20:38] VITALS: BP 128/71
[2019-08-12 08:00] VITALS: BP 157/79
[2019-08-12] MEDS: DIVALPROEX SODIUM 500 MG TABLET.DR PO SCH ×3 (08:39→17:01)
[2019-08-12] MEDS: FLUTICASONE PROPIONATE 16 GM BOTTLE NS SCH ×2 (08:39→17:09)
[2019-08-12] MEDS: risperiDONE 1 MG TABLET PO SCH ×2 (08:39→17:01)
[2019-08-12] MEDS: AMLODIPINE BESYLATE 5 MG TABLET PO SCH (08:39)
[2019-08-12] MEDS: NICOTINE PATCH (21MG) 21 MG PATCH.TD24 TD SCH (08:46)
--- NOTE | 2019-08-12 08:48 | NUR ---
PATIENT HAS REACTION TO NICOTINE PATCH. PICTURES TAKEN. PLACED IN CHART. CN AWARE. WILL CONTACT MD TO DC ORDER.
[2019-08-12] MEDS: MINERAL OIL/PETROLATUM,WHITE 120 GM JAR TP SCH (09:00)
--- NOTE | 2019-08-12 11:53 | NUR ---
CALLED [facility] FOR EUCERIN CREAM. CURRENTLY UNAVAILABLE.
--- NOTE | 2019-08-12 15:40 | NUR ---
Group Note: SW encouraged pt to participate in group on 08/12/19 at 2pm discussing discharge planning. Pt is manic and aggressive. Pt was inappropriate for group therapy. SW informed the pt that she will be returning to [facility] sometime soon. Pt stated that she wanted to remain in the hospital because she likes it at the facility.
[2019-08-12 16:00] VITALS: BP 145/98
[2019-08-12] MEDS: MULTIVIT W/MINERALS 1 TAB TABLET PO SCH (17:01)
[2019-08-12] MEDS: LORAZEPAM 0.5 MG TABLET PO PRN ×2 (17:01→23:11)
[2019-08-12] MEDS: DOCUSATE SODIUM 100 MG CAPSULE PO SCH (17:01)
--- NOTE | 2019-08-12 18:18 | NUR ---
PRN ATIVAN GIVEN FOR RESTLESSNESS
--- NOTE | 2019-08-12 18:42 | NUR ---
1:1 SITTER OBSERVED PATIENT THROWING HERSELF ON THE FLOOR PURPOSELY AND WANTING TO STAY THERE. PATIENT SOMETIMES LIKES TO SIT ON THE FLOOR.
[2019-08-12 20:07] VITALS: BP 123/60
[2019-08-12] MEDS: ZOLPIDEM TARTRATE 5 MG TABLET PO PRN (21:11)
--- NOTE | 2019-08-12 21:17 | NUR ---
PRN AMBIEN GIVEN patient is unable to sleep at this time, feeling restless & anxious. PRN ambien 5 mg po given. will continue to monitor.
--- NOTE | 2019-08-12 22:12 | NUR ---
GPS RN NOTE PATIENT IS STILL AWAKE, ANXIOUS, RESTLESS, ON 1:1 SUPERVISION FOR SAFETY, PT. IS KEEP ATTEMPTING TO DROP HERSELF ON THE FLOOR SAYING," I N AM FALLING TO THE JANELL, I AM FALLING TO THE JANELL" PT. IS BEING REDIRECTED FREQUENTLY BY THE NURSE. SNACK & JUICES HAVE BEEN GIVEN TO THE PT. TOLERATED WELL. WILL CONTINUE TO MONITOR THE PT. VERY CLOSELY FOR SAFETY & BEHAVIOR.
[2019-08-12] MEDS: ACETAMINOPHEN 325 MG TABLET PO PRN (22:21)
--- NOTE | 2019-08-12 22:23 | NUR ---
PRN TYLENOL GIVEN PATIENT STATED HER LEGS HURT & NEED MEDICINE, UNABLE TO SCALE PAIN LEVEL DUE TO CONFUSION. NO S/S OF MODERATE OR SEVERE PAIN NOTED. PRN TYLENOL 650 MG PO GIVEN. WILL CONTINUE TO MONITOR.
--- NOTE | 2019-08-12 23:11 | NUR ---
PRN ATIVAN GIVEN PATIENT IS VERY ANXIOUS, RESTLESS, HYPERVERBAL, PARANOID, YELLING, SCREAMING. PRN ATIVAN 1 MG PO GIVEN. ON 1:1 SUPERVISION FOR SAFETY & REDIRECTIONS. WILL MONITOR CLOSELY.
[2019-08-13] MEDS: LORAZEPAM 0.5 MG TABLET PO PRN ×2 (07:03→14:42)
--- NOTE | 2019-08-13 07:06 | NUR ---
PRN ATIVAN GIVEN PATIENT IS ANXIOUS, RESTLESS, PACING IN THE HALLWAY, PRN ATIVAN 1 MG PO GIVEN.
--- NOTE | 2019-08-13 07:44 | NUR ---
OBSERVED PATIENT PLACING HERSELF ON THE FLOOR ON HER ELBOWS AND KNEES X3 TIMES. PATIENT NEEDS TO BE CONSTANTLY REDIRECTED.
[2019-08-13 08:00] VITALS: BP 154/93
[2019-08-13] MEDS: risperiDONE 1 MG TABLET PO SCH ×2 (08:20→20:31)
[2019-08-13] MEDS: DIVALPROEX SODIUM 500 MG TABLET.DR PO SCH ×3 (08:21→16:20)
[2019-08-13] MEDS: NICOTINE PATCH (21MG) 21 MG PATCH.TD24 TD SCH (08:21)
[2019-08-13] MEDS: AMLODIPINE BESYLATE 5 MG TABLET PO SCH (08:21)
[2019-08-13] MEDS: FLUTICASONE PROPIONATE 16 GM BOTTLE NS SCH ×2 (08:25→16:20)
[2019-08-13] MEDS: MINERAL OIL/PETROLATUM,WHITE 120 GM JAR TP SCH (09:00)
--- NOTE | 2019-08-13 10:54 | NUR ---
SECOND DAY ATTEMPTING TO OBTAIN EUCERIN CREAM. INFORMED PHARMACY. AWAITING DELIVERY.
--- NOTE | 2019-08-13 11:44 | NUR ---
Facility Contact: NICKO contacted Alba ([phone]) from [facility] and informed her that the pt will return to the facility on Saturday.
--- NOTE | 2019-08-13 11:44 | NUR ---
Family Contact: NICKO contacted the pts son, Marcelo ([phone]), and informed him that the pt will return to the [facility] facility on Saturday.
--- NOTE | 2019-08-13 14:44 | NUR ---
PATIENT RESTLESS, DELUSIONAL AND PSYCHOTIC SYMPTOMS NOTED. PRN ATIVAN GIVEN
[2019-08-13 16:00] VITALS: BP 157/93
[2019-08-13] MEDS: MULTIVIT W/MINERALS 1 TAB TABLET PO SCH (16:20)
[2019-08-13] MEDS: DOCUSATE SODIUM 100 MG CAPSULE PO SCH (18:45)
[2019-08-13 22:13] VITALS: BP 110/55
[2019-08-14 08:00] VITALS: BP 145/75
[2019-08-14] MEDS: FLUTICASONE PROPIONATE 16 GM BOTTLE NS SCH ×2 (08:47→16:31)
[2019-08-14] MEDS: DIVALPROEX SODIUM 500 MG TABLET.DR PO SCH ×3 (08:51→16:30)
[2019-08-14] MEDS: LORAZEPAM 0.5 MG TABLET PO PRN ×3 (08:51→23:06)
[2019-08-14] MEDS: risperiDONE 1 MG TABLET PO SCH ×2 (08:51→21:51)
[2019-08-14] MEDS: AMLODIPINE BESYLATE 5 MG TABLET PO SCH (08:51)
[2019-08-14] MEDS: MINERAL OIL/PETROLATUM,WHITE 120 GM JAR TP SCH (09:00)
[2019-08-14 16:00] VITALS: BP 153/68
[2019-08-14] MEDS: MULTIVIT W/MINERALS 1 TAB TABLET PO SCH (16:30)
[2019-08-14] MEDS: DOCUSATE SODIUM 100 MG CAPSULE PO SCH (17:05)
[2019-08-14 20:40] VITALS: BP_SYST 121; BP_SYST 153; BP_DIAS 58; BP_DIAS 68
[2019-08-14] MEDS: ZOLPIDEM TARTRATE 5 MG TABLET PO PRN (22:38)
[2019-08-15 08:00] VITALS: BP 110/81
[2019-08-15] MEDS: risperiDONE 1 MG TABLET PO SCH ×2 (08:14→20:51)
[2019-08-15] MEDS: DIVALPROEX SODIUM 500 MG TABLET.DR PO SCH ×3 (08:14→17:20)
[2019-08-15] MEDS: LORAZEPAM 0.5 MG TABLET PO PRN ×2 (08:15→15:54)
[2019-08-15] MEDS: AMLODIPINE BESYLATE 5 MG TABLET PO SCH (08:15)
[2019-08-15] MEDS: MINERAL OIL/PETROLATUM,WHITE 120 GM JAR TP SCH (08:16)
[2019-08-15] MEDS: FLUTICASONE PROPIONATE 16 GM BOTTLE NS SCH ×2 (08:20→17:19)
[2019-08-15] MEDS ORDERED: OLANZAPINE 10 MG VIAL IM ONE (09:30)
[2019-08-15] MEDS ORDERED: LORAZEPAM INJ 2 MG/ML VIAL IM ONE (09:30)
[2019-08-15 16:00] VITALS: BP 149/89
[2019-08-15] MEDS: MULTIVIT W/MINERALS 1 TAB TABLET PO SCH (17:20)
[2019-08-15] MEDS: DOCUSATE SODIUM 100 MG CAPSULE PO SCH (17:29)
[2019-08-15 20:52] VITALS: BP 150/69
[2019-08-16 07:22] LABS: BASOPHILS % (AUTO) 0.4 % (0.0-2.0); EOSINOPHILS % (AUTO) 3.6 % (0.0-6.0); HEMATOCRIT 35 % (33-45); HEMOGLOBIN 11.8 g/dL (11.5-14.8); LYMPHOCYTES # (AUTO) 2.5 /CMM (0.8-4.8); LYMPHOCYTES % (AUTO) 29.7 % (20.0-44.0); MEAN CORPUSCULAR HGB CONC 33 g/dl (31.0-36.0); MEAN CORPUSCULAR VOLUME 93 fL (82-100); MONOCYTES # (AUTO) 0.6 /CMM (0.1-1.30); MONOCYTES % (AUTO) 7.6 % (2.0-12.0); NEUTROPHILS # (AUTO) 4.9 /CMM (1.8-8.9); NEUTROPHILS % (AUTO) 58.7 % (43.0-81.0); PLATELET COUNT (AUTO) 252 /CMM (150-450); RED BLOOD CELL COUNT(AUTO) 3.83 MIL/uL (4.0-5.2); WHITE BLOOD COUNT (AUTO) 8.4 K/uL (4.3-11.0)
[2019-08-16 07:54] LABS: ALBUMIN 2.8 g/dL (3.4-5.0); BILIRUBIN,TOTAL 0.3 mg/dL (0.2-1.0); CALCIUM, SERUM 9.1 mg/dL (8.5-10.1); CREATININE 0.7 mg/dL (0.6-1.3); POTASSIUM 4.4 mmol/L (3.5-5.1); TOTAL PROTEIN, SERUM 6.8 g/dL (6.4-8.2)
[2019-08-16 08:00] VITALS: BP 137/59
[2019-08-16] MEDS: risperiDONE 1 MG TABLET PO SCH ×2 (08:17→21:24)
[2019-08-16] MEDS: AMLODIPINE BESYLATE 5 MG TABLET PO SCH (08:17)
[2019-08-16] MEDS: DIVALPROEX SODIUM 500 MG TABLET.DR PO SCH ×3 (08:17→16:05)
[2019-08-16] MEDS: LORAZEPAM 0.5 MG TABLET PO PRN ×3 (08:17→20:26)
[2019-08-16] MEDS: MINERAL OIL/PETROLATUM,WHITE 120 GM JAR TP SCH (08:18)
[2019-08-16] MEDS: FLUTICASONE PROPIONATE 16 GM BOTTLE NS SCH ×2 (08:18→16:38)
--- NOTE | 2019-08-16 08:46 | NUR ---
PATIENT IS RAMBLING, PACING, PURPOSELY THROWING HERSELF ON THE FLOOR.
--- NOTE | 2019-08-16 09:00 | NUR ---
PRN ATIVAN GIVEN FOR RESTLESSNESS Addendum: 08/16/19 at 1522 by MALISSA SHERWOOD RN PRN ATIVAN PO GIVEN FOR RESTLESSNESS
[2019-08-16 16:00] VITALS: BP 145/101
[2019-08-16] MEDS: MULTIVIT W/MINERALS 1 TAB TABLET PO SCH (16:05)
[2019-08-16 16:36] LABS: APPEARANCE,URINE CLEAR (CLEAR); BILIRUBIN,URINE NEGATIVE (NEGATIVE); BLOOD, URINE NEGATIVE Ery/uL (NEGATIVE); KETONES,URINE NEGATIVE (NEGATIVE); LEUKOCYTE ESTERASE ,URINE NEGATIVE (NEGATIVE); NITRITE, URINE NEGATIVE (NEGATIVE); PH,URINE 7.5 (5.0-8.0); PROTEIN,URINE NEGATIVE (NEGATIVE); UGLUCOSE NEGATIVE (NEGATIVE); UROBILINOGEN,URINE 0.2 EU/dL (0.2)
[2019-08-16 16:39] LABS: COLOR,URINE STRAW (YELLOW)
[2019-08-16] MEDS: DOCUSATE SODIUM 100 MG CAPSULE PO SCH (17:00)
--- NOTE | 2019-08-16 20:28 | NUR ---
RN NOTES: PT.C/O VERY ANXIOUS PARANOID HYPERVERVAL, RESTLESS NOT FOLLOWING ANY REDIRECTIONS , ATIVAN 1 MG PO PRN GIVEN PER PT REQUEST , WILL CONTINUE TO MONITOR.
[2019-08-16 20:49] VITALS: BP 146/63
--- NOTE | 2019-08-16 21:19 | NUR ---
RN NOTES: PT. REFUSED WEEKLY SKIN REASSESSMENT AND PHOTO TO BE TAKEN, ENCOURAGED X3 STILL STRONGLY REFUSED, PT. BEHAVIOUR VERY ANXIOUS UNCOOPERTIVE HYPERVERVAL , WILL CONTINUITY WITH CARE.
[2019-08-17] MEDS: ZOLPIDEM TARTRATE 5 MG TABLET PO PRN (01:08)
--- NOTE | 2019-08-17 06:49 | NUR ---
RN NOTES: DURING IN SHIFT PT. BEHAVIOR UNCOOPERTIVE, HYPERVERBAL ,ANXIOUS,NOT FOLLOWING ANY DIRECTIONS PT. ATTEMPTING TO LAYING ON THE FLOOR, 1:1 SITTER AT BED SIDE FOR SAFETY, WILL CONTIUITY WITH CARE.
[2019-08-17 08:00] VITALS: BP 141/92
[2019-08-17] MEDS: risperiDONE 1 MG TABLET PO SCH (08:14)
[2019-08-17] MEDS: LORAZEPAM 0.5 MG TABLET PO PRN ×2 (08:14→16:41)
[2019-08-17] MEDS: DIVALPROEX SODIUM 500 MG TABLET.DR PO SCH ×3 (08:15→16:40)
[2019-08-17] MEDS: FLUTICASONE PROPIONATE 16 GM BOTTLE NS SCH ×2 (08:15→16:41)
[2019-08-17] MEDS: AMLODIPINE BESYLATE 5 MG TABLET PO SCH (08:15)
[2019-08-17] MEDS: MINERAL OIL/PETROLATUM,WHITE 120 GM JAR TP SCH (08:15)
--- NOTE | 2019-08-17 08:25 | NUR ---
Family Contact: SW called the pts daughter in law, Catalina ([phone]), and informed her that the pt is being discharged today to [facility] around 2pm.
--- NOTE | 2019-08-17 08:29 | NUR ---
Family Contact: NICKO contacted the pts son, Marcelo ([phone]), and informed him that the pt will return to the [facility] facility today around 2pm.
--- NOTE | 2019-08-17 09:00 | NUR ---
PRN ATIVAN PO GIVEN FOR RESTLESSNESS Addendum: 08/17/19 at 1643 by MALISSA SHERWOOD RN PRN ATIVAN GIVEN FOR RESTLESSNESS
--- NOTE | 2019-08-17 09:20 | NUR ---
SNF Contact: NICKO faxed updated notes to Alba from [facility] to the fax number: [phone].
--- NOTE | 2019-08-17 09:25 | NUR ---
Discharge Note: Pt was discharged to [facility] (SNF) located at [address] [place] [address]; ([phone]). Pt was transported via [facility] at 2PM. Pts daughter in law, Catalina ([phone]), was notified of the placement. Upon discharge, the pt presented with a euthymic mood and presented with a distressed affect. Pt denied both suicidal and homicidal ideation as well as auditory and visual hallucinations. Pt will continue to be under the care of her psychiatrist, Dr. Gerardo, located at [address], [place] [address]; and her multiple drum sander helper, Dr. Phillips, located at [address] [facility], [place] [address], . Addendum: 08/17/19 at 1338 by ABDELRAHMAN MAHARAJ [facility] Trip#[id number] at 5:30PM
[2019-08-17 16:00] VITALS: BP 142/77
[2019-08-17] MEDS: MULTIVIT W/MINERALS 1 TAB TABLET PO SCH (16:40)
[2019-08-17] MEDS: DOCUSATE SODIUM 100 MG CAPSULE PO SCH (18:00)
--- NOTE | 2019-08-17 18:22 | NUR ---
JAVA USER INTERFACE DEVELOPER NOTE: PATIENT IS A 54 YEAR OLD FEMALE [facility] [address] [facility] [id number] . PATIENT IS IN STABLE CONDITION. VSS. NO ACUTE DISTRESS NOTED. NO COMPLAINTS. COMPLIANT WITH MEDICATION MANAGEMENT. COOPERATIVE WITH PLAN OF CARE. PSYCHIATRIC TREATMENT PLANS MET. MEDICAL TREATMENT PLANS DEFERRED FOR CONTINUAL MONITORING. DENIES SI/HI VAH AT THE TIME OF DISCHARGE.SKIN INTACT. EDUCATED PATIENT ABOUT AFTERCARE WITH COPY PROVIDED. RETURNED PERSONAL BELONGINGS TO PATIENT. MEDICATIONS RECONCILED WITH DR YUKI NOBLE ALONG WITH PSYCHIATRIC DISCHARGE ORDERS. DISCHARGE PAPERWORK SIGNED. FOR FOLLOW UP WITH PSYCHIATRIST DR MIRZA [id number] [facility] [address] [facility] [phone] AND RECONCILIATION SPECIALIST DR LOPEZ [address] [facility] [address] [facility] [phone] IN 1 WEEK. PATIENT LEFT THE [facility]IA [facility] AT 1820. Addendum: 08/26/19 at 1505 by MALISSA SHERWOOD RN PATIENT REFUSED ANY PICTURES BEING TAKEN PRIOR TO DISCHARGE STATING THERE'S NOTHING TO TAKE A PICTURE OF.
== END 2019-08-17 18:20 | DRG 885 ==
LOC: ER 14:54 → GPS 17:58
PROVIDERS: ADMIT Psychiatry & Neurology Psychiatry; ATTEND Hospitalist
DX: F25.0 Schizoaffective disorder, bipolar type (principal); E44.1 Mild protein-calorie malnutrition; F17.210 Nicotine dependence, cigarettes, uncomplicated; F41.9 Anxiety disorder, unspecified; I10 Essential (primary) hypertension; E78.5 Hyperlipidemia, unspecified; Z68.22 Body mass index [BMI] 22.0-22.9, adult; F09 Unspecified mental disorder due to known physiological condition
CPT/HCPCS: 36415; 80048-TC; 80053-TC; 80061-TC; 80076-TC; 80164-TC; 80305; 81000-TC; 85025-TC; 87081-TC; G0480; J1200; J1630; J2060; J3490; J7030

== ENCOUNTER 2019-08-25 13:50 | Inpatient (IN) | payer MEDICARE, OTHER ==
[~2019-08-25] VITALS: Ht 172.7 cm; Wt 75.7 kg
[~2019-08-25 13:50] MED LIST changes: +ACET-868 PO; +AMIN887L PO; +AMLO5TAB4 PO; +BISA10SU11 RC; +CLON0.1T PO; +DOCU-141 PO; -IPRA12.9 INH; +MAGN400O6 PO; +MULT-447 PO; +NA P133E RC; +NICO-627 TD
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
[2019-08-25] MEDS ORDERED: DIVA500T2 PO (16:01)
[2019-08-25] MEDS ORDERED: QUET400T PO (16:01)
--- NOTE | 2019-08-25 16:20 | NUR ---
TEJINDER NOTIFIED FOR PSYCH EVAL
[2019-08-25 16:22] LABS: BASOPHILS # (AUTO) 0.1 /CMM (0.0-0.2); BASOPHILS % (AUTO) 0.7 % (0.0-2.0); EOSINOPHILS % (AUTO) 1.4 % (0.0-6.0); HEMATOCRIT 35 % (33-45); HEMOGLOBIN 11.6 g/dL (11.5-14.8); LYMPHOCYTES # (AUTO) 1.9 /CMM (0.8-4.8); MEAN CORPUSCULAR HGB CONC 33 g/dl (31.0-36.0); MEAN CORPUSCULAR VOLUME 93 fL (82-100); MONOCYTES # (AUTO) 0.5 /CMM (0.1-1.30); MONOCYTES % (AUTO) 6.3 % (2.0-12.0); NEUTROPHILS # (AUTO) 4.8 /CMM (1.8-8.9); NEUTROPHILS % (AUTO) 65.6 % (43.0-81.0); PLATELET COUNT (AUTO) 194 /CMM (150-450); RED BLOOD CELL COUNT(AUTO) 3.74 MIL/uL (4.0-5.2); WHITE BLOOD COUNT (AUTO) 7.3 K/uL (4.3-11.0)
--- NOTE | 2019-08-25 16:31 | NUR ---
CALLED LAB REGARDING URINE
[2019-08-25 16:34] LABS: CALCIUM, SERUM 9.4 mg/dL (8.5-10.1); CARBON DIOXIDE 30 mmol/L (21-32); CHLORIDE 105 mmol/L (98-107); CREATININE 0.7 mg/dL (0.6-1.3); GLUCOSE 105 mg/dL (74-106); POTASSIUM 3.8 mmol/L (3.5-5.1); SODIUM SERUM 141 mmol/L (136-145); UREA NITROGEN, BLOOD 15 mg/dL (7-18)
[2019-08-25 16:42] LABS: APPEARANCE,URINE Clear (CLEAR); BILIRUBIN,URINE Negative (NEGATIVE); BLOOD, URINE Negative Ery/uL (NEGATIVE); COLOR,URINE Yellow (YELLOW); KETONES,URINE Negative (NEGATIVE); LEUKOCYTE ESTERASE ,URINE Negative (NEGATIVE); NITRITE, URINE Negative (NEGATIVE); PROTEIN,URINE Negative (NEGATIVE); UGLUCOSE Negative (NEGATIVE); UROBILINOGEN,URINE 0.2 EU/dL (0.2)
[2019-08-25 16:50] LABS: ALANINE AMINOTRANSFERASE 16 U/L (12-78); ALCOHOL, BLOOD < 3 mg/dL (0-0); ALKALINE PHOSPHATASE 65 U/L (46-116); ASPARTATE AMINOTRANSFERASE 16 U/L (15-37); BILIRUBIN,TOTAL 0.2 mg/dL (0.2-1.0); TOTAL PROTEIN, SERUM 6.8 g/dL (6.4-8.2)
[2019-08-25 16:52] LABS: ACETAMINOPHEN < 2 ug/ml (10-30); SALICYLATE < 2.8 mg/dL (2.8-20.0)
--- NOTE | 2019-08-25 17:51 | NUR ---
RESTING IN BED. GIVEN FOOD AND JUICE. VSS.
--- NOTE | 2019-08-25 18:28 | NUR ---
PINKY ETA 1 HR
--- NOTE | 2019-08-25 19:30 | NUR ---
[address] [facility] B[facility]
--- NOTE | 2019-08-25 19:57 | NUR ---
CALED IN REPORT TO GPS RN, EMT TO TRANSFER PT TO FLOOR
[2019-08-25 20:10] VITALS: BP 132/85
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
[2019-08-25] MEDS ORDERED: BLOOD SUGAR DIAGNOSTIC 1 EACH STRIP IN ONE (20:30)
[2019-08-25] MEDS ORDERED: MAG HYDROX/AL HYDROX/SIMETH 30 ML UDC PO PRN (20:30)
[2019-08-25] MEDS ORDERED: ACETAMINOPHEN 325 MG TABLET PO PRN (20:30)
[2019-08-25] MEDS ORDERED: MAGNESIUM HYDROXIDE 30 ML UDC PO PRN (20:30)
--- NOTE | 2019-08-26 05:35 | NUR ---
GPS-RN PAGED [employer] RAIL SPLITTER DR. HALLMAN REGARDING MED RECONCILIATION. AWAITING RESPONSE.
[2019-08-26] MEDS ORDERED: NICO-677 TP (05:47)
[2019-08-26] MEDS ORDERED: DOCU-141 PO (05:47)
[2019-08-26] MEDS ORDERED: AMLO5TAB9 PO (05:47)
[2019-08-26] MEDS ORDERED: CLON0.1T PO (05:47)
[2019-08-26] MEDS ORDERED: SERT25TA PO (05:57)
[2019-08-26] MEDS ORDERED: RISP3TAB5 PO (05:57)
[2019-08-26 08:00] VITALS: BP 142/96
[2019-08-26 08:55] LABS: CREATININE 0.9 mg/dL (0.6-1.3)
[2019-08-26 09:01] LABS: CHOLESTEROL 225 mg/dL (<200); HDL CHOLESTEROL 78 mg/dL (40-60); LDL 125 mg/dL (0-99); TRIGLYCERIDES 55 mg/dL (30-150)
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
--- NOTE | 2019-08-26 10:50 | NUR ---
WOUND CARE CONSULT: PT PRESENTS AMBULATORY AND CONTINENT WITH DRY SKIN ON FEET, PRESENT ON ADMISSION. MOISTURIZER RECOMMENDATION MADE AND DISCUSSED WITH NURSING STAFF. WILL SEE [employer] JAUREGUI IN AGREEMENT WITH PLAN OF CARE.
[2019-08-26] MEDS: MINERAL OIL/PETROLATUM,WHITE 120 GM JAR TP SCH (11:00)
[2019-08-26] MEDS: LORAZEPAM 0.5 MG TABLET PO PRN ×2 (11:11→20:56)
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
[2019-08-26] MEDS: DIVALPROEX SODIUM 500 MG TABLET.DR PO SCH ×2 (13:55→16:42)
[2019-08-26] MEDS: risperiDONE 1 MG TABLET PO SCH ×2 (13:55→16:43)
--- NOTE | 2019-08-26 14:10 | NUR ---
Family Contact: SW called the pts daughter in law, Catalina ([phone]), and informed her that the pt had returned to the facility and that the [facility]. Pts daughter in law stated that she would like the pt to remain in a SNF. SW stated that she would keep the family informed regarding the pts case.
--- NOTE | 2019-08-26 15:53 | NUR ---
RN NOTE- EUCERIN CREAM TO BE APPLIED TO FEET FOR EXFOLIATED SKIN. CREAM UNAVAILABLE PER PHARMACY. WILL BE DELIVERED TOMORROW BY PHARMACY STAFF.
[2019-08-26 16:00] VITALS: BP 144/89
[2019-08-26] MEDS: LITHIUM CARBONATE (300 MG CAP) 300 MG CAPSULE PO SCH (20:56)
[2019-08-26] MEDS ORDERED: CLONIDINE HCL 0.1 MG TABLET PO PRN (21:00)
[2019-08-26] MEDS: TEMAZEPAM 7.5 MG CAPSULE PO PRN (22:09)
[2019-08-27 08:00] VITALS: BP 150/66
[2019-08-27] MEDS: risperiDONE 1 MG TABLET PO SCH ×2 (08:30→16:12)
[2019-08-27] MEDS: DIVALPROEX SODIUM 500 MG TABLET.DR PO SCH ×3 (08:30→16:12)
[2019-08-27] MEDS: LITHIUM CARBONATE (300 MG CAP) 300 MG CAPSULE PO SCH ×2 (08:30→21:31)
[2019-08-27] MEDS: AMLODIPINE BESYLATE 5 MG TABLET PO SCH (08:33)
[2019-08-27] MEDS ORDERED: NICOTINE PATCH (21MG) 21 MG PATCH.TD24 TD SCH (09:00)
[2019-08-27] MEDS: MINERAL OIL/PETROLATUM,WHITE 120 GM JAR TP SCH ×2 (09:00→13:50)
--- NOTE | 2019-08-27 14:12 | NUR ---
Facility Contact: SW contacted Alba ([phone]) from [facility] who stated that the pt will be accepted back to their facility but it would be preferable if the pt can be sent elsewhere.
--- NOTE | 2019-08-27 14:13 | NUR ---
Individual Intervention: SW spoke to the pt who stated that she believes she is ready to go home and live with her son. She stated that her son stated that she can be discharged today. NICKO stated that the MD is the only one who can release her but he will once she is stable.
--- NOTE | 2019-08-27 14:14 | NUR ---
Family Contact: SW called the pts son, Marcelo ([phone]), but the pts mailbox is full at this moment.
--- NOTE | 2019-08-27 14:33 | NUR ---
Fan Solorio made aware that the last she was on Nicotine Patch had a rashes on the site where it was applied and ordered to d/c Nicotine patch.
--- NOTE | 2019-08-27 14:49 | NUR ---
Group Note: SW encouraged pt to participate in group on 08/27/19 at 2pm discussing suicidal urges. Pt refused to participate in group so the SW asked the pt to speak to this topic one on one. Pt stated that she wants to return to her home with her sons and does not want to keep being discharged to facilities. Pt stated that she feels alone at facilities and so that makes her act out and want to end her life. Pt stated that she just wants to be able to live her life.
[2019-08-27 16:00] VITALS: BP 140/77
[2019-08-27] MEDS: DOCUSATE SODIUM 100 MG CAPSULE PO SCH (17:08)
[2019-08-27 20:00] VITALS: BP 149/66
[2019-08-27] MEDS: LORAZEPAM 0.5 MG TABLET PO PRN (22:32)
[2019-08-27] MEDS: TEMAZEPAM 7.5 MG CAPSULE PO PRN (22:57)
[2019-08-28 08:00] VITALS: BP 123/54
[2019-08-28] MEDS: DIVALPROEX SODIUM 500 MG TABLET.DR PO SCH ×3 (08:11→16:21)
[2019-08-28] MEDS: LITHIUM CARBONATE (300 MG CAP) 300 MG CAPSULE PO SCH ×2 (08:12→20:59)
[2019-08-28] MEDS: risperiDONE 1 MG TABLET PO SCH ×2 (08:12→16:21)
[2019-08-28] MEDS: MINERAL OIL/PETROLATUM,WHITE 120 GM JAR TP SCH (08:42)
[2019-08-28] MEDS: AMLODIPINE BESYLATE 5 MG TABLET PO SCH (08:43)
--- NOTE | 2019-08-28 13:58 | NUR ---
Family Contact: SW called the pts son, Marcelo ([phone]), but the pts mailbox is full at this moment.
--- NOTE | 2019-08-28 14:48 | NUR ---
Group Note: SW encouraged pt to participate in group on 08/28/19 at 2pm discussing social supports. Pt refused to participate in group because she stated that she is not comfortable being around the other patients so the SW asked the pt to speak to this topic one on one. Pt stated that she wants to return to her home with her sons because two of them live together and she used to live with them. She stated that she feels alone in facilities and that she wants to be near her family members who support her. SW stated that her sons want her to be in a SNF and she stated that cannot be true and that she will call them and talk to them.
[2019-08-28 16:00] VITALS: BP 138/62
[2019-08-28] MEDS: DOCUSATE SODIUM 100 MG CAPSULE PO SCH (17:02)
--- NOTE | 2019-08-28 19:10 | NUR ---
GPS RN NOTES RECEIVED PT IN BED AWAKE, NO S/S OR COMPLAINTS OF PAIN AT THIS TIME. PT IS DISPLAYING NO S/S OF APPARENT DISTRESS AT THIS TIME. PT BREATHING IS UNLABORED WITH EQUAL RISE AND FALL OF THE CHEST. PT A/O X2-3 ON ROOM AIR SATING 97%. PT COMPLIANT WITH MEDICATION, DISORGANIZED, RESPONDING TO INTERNAL STIMULI, ANXIOUS, AND COOPERATIVE. PT DENIES SUICIDE IDEATIONS AND HOMICIDAL IDEATIONS AT THIS TIME. PT ASSISTED WITH TURNING AND REPOSITIONING Q2 HR AND PRN FOR COMFORT AND CIRCULATION. PT HAS NO NEEDS AT THIS TIME. PT EDUCATED ON THE USE OF THE CALL EWING. PT BED SIDE RAILS UP X2 FOR SAFETY, BED IS LOCKED AND LOW. WILL CONTINUE TO MONITOR Q15 MIN WITH THE HELP OF STAFF TO MAINTAIN SAFETY.
[2019-08-28 20:00] VITALS: BP 104/46
[2019-08-29 08:00] VITALS: BP 133/86
[2019-08-29] MEDS: AMLODIPINE BESYLATE 5 MG TABLET PO SCH (08:34)
[2019-08-29] MEDS: DIVALPROEX SODIUM 500 MG TABLET.DR PO SCH ×3 (08:34→16:40)
[2019-08-29] MEDS: LITHIUM CARBONATE (300 MG CAP) 300 MG CAPSULE PO SCH ×2 (08:34→20:40)
[2019-08-29] MEDS: risperiDONE 1 MG TABLET PO SCH ×2 (08:34→16:40)
[2019-08-29] MEDS: MINERAL OIL/PETROLATUM,WHITE 120 GM JAR TP SCH (08:34)
[2019-08-29 16:00] VITALS: BP 144/75
[2019-08-29] MEDS: DOCUSATE SODIUM 100 MG CAPSULE PO SCH (17:01)
[2019-08-29 19:55] VITALS: BP 140/62
[2019-08-30 08:00] VITALS: BP 153/82
[2019-08-30] MEDS: DIVALPROEX SODIUM 500 MG TABLET.DR PO SCH ×3 (08:34→16:23)
[2019-08-30] MEDS: LITHIUM CARBONATE (300 MG CAP) 300 MG CAPSULE PO SCH ×2 (08:34→20:29)
[2019-08-30] MEDS: risperiDONE 1 MG TABLET PO SCH ×2 (08:34→16:23)
[2019-08-30] MEDS: MINERAL OIL/PETROLATUM,WHITE 120 GM JAR TP SCH (08:34)
[2019-08-30] MEDS: AMLODIPINE BESYLATE 5 MG TABLET PO SCH (08:34)
--- NOTE | 2019-08-30 10:07 | NUR ---
RN-CO: Patient frequently in the nursing station, asking the portable phone. Patient don't want to wait she wanted to have the phone right away even other patient is using it. When she had the phone, director of industrial relations noted that she pulled the wires inside the portable phone. Addendum: 08/30/19 at 1012 by KIM NAIDU RN RN-CO: Patient is alert and oriented x 4, no confusion noted. Always threatening staff that she will call the police.
[2019-08-30 16:00] VITALS: BP 112/58
[2019-08-30] MEDS: DOCUSATE SODIUM 100 MG CAPSULE PO SCH (17:20)
[2019-08-30 19:43] VITALS: BP 157/90
[2019-08-30 20:26] VITALS: BP 104/57
--- NOTE | 2019-08-31 05:41 | NUR ---
GPS RN NOTES: PT REFUSED SATURDAY WEEKLY PICTURE SKIN ASSESSMENT. PT STATED, "GET THE FUCK OUT OF HERE. I DONT WANT THAT." EXPLAIN RISKS AND BENEFITS. PT STILL REFUSED X3. CONTINUE TO MONITOR.
[2019-08-31 08:00] VITALS: BP 132/86
[2019-08-31] MEDS: LITHIUM CARBONATE (300 MG CAP) 300 MG CAPSULE PO SCH ×2 (08:27→20:04)
[2019-08-31] MEDS: DIVALPROEX SODIUM 500 MG TABLET.DR PO SCH ×3 (08:27→16:33)
[2019-08-31] MEDS: risperiDONE 1 MG TABLET PO SCH ×2 (08:27→16:33)
[2019-08-31] MEDS: AMLODIPINE BESYLATE 5 MG TABLET PO SCH (08:27)
[2019-08-31] MEDS: MINERAL OIL/PETROLATUM,WHITE 120 GM JAR TP SCH (08:30)
--- NOTE | 2019-08-31 09:15 | NUR ---
SNF Referral: NICKO faxed a referral to [facility] with attn to JAVAN and Karlo to the fax number: [phone].
--- NOTE | 2019-08-31 10:45 | NUR ---
SNF Contact: JAVAN ([phone]) from [facility] SN[facility] contacted the SW and stated that the pt was accepted to their facility.
--- NOTE | 2019-08-31 12:52 | NUR ---
Individual Intervention with the Pt: Pt was informed that she cannot be discharged to her son because he is not comfortable taking her in at this point. SW informed her that she was accepted to a facility in [facility] and that she will be discharged there on Saturday. Pt stated that she is excited to be near [place] and that she can smoke at the facility. Pt accepted placement.
--- NOTE | 2019-08-31 14:14 | NUR ---
Family Contact: SW called the pts daughter in law, Catalina ([phone]), and informed her that the pt is going to be discharged to [facility] on Saturday. She accepted the placement.
[2019-08-31 16:00] VITALS: BP 136/62
[2019-08-31] MEDS: DOCUSATE SODIUM 100 MG CAPSULE PO SCH (17:33)
[2019-08-31 20:31] VITALS: BP 147/67
[2019-08-31 22:00] VITALS: BP 132/86
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
--- NOTE | 2019-09-01 05:00 | NUR ---
GPS RN NOTES CHARGE NURSE, RN GEODETIC ADVISOR AND NURSE ACCELERATOR OPERATOR NOTIFIED. MD AND FAMILIES OF PATIENTS INVOLVED MADE AWARE. PATIENT MOVED TO A ONE BED ROOM AND MONITORED FOR SAFETY AND BEHAVIOR.
[2019-09-01] MEDS: LORAZEPAM 0.5 MG TABLET PO PRN ×3 (05:39→18:02)
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
--- NOTE | 2019-09-01 06:35 | NUR ---
GPS RN NOTES RECEIVED A CALL BACK AND SPOKE TO WITH NO NEW ORDERS RECEIVED.
[2019-09-01 08:00] VITALS: BP 136/70
[2019-09-01] MEDS: risperiDONE 1 MG TABLET PO SCH ×2 (08:32→16:52)
[2019-09-01] MEDS: DIVALPROEX SODIUM 500 MG TABLET.DR PO SCH ×3 (08:33→16:52)
[2019-09-01] MEDS: LITHIUM CARBONATE (300 MG CAP) 300 MG CAPSULE PO SCH ×2 (08:33→22:01)
[2019-09-01] MEDS: AMLODIPINE BESYLATE 5 MG TABLET PO SCH (08:34)
[2019-09-01] MEDS: MINERAL OIL/PETROLATUM,WHITE 120 GM JAR TP SCH (08:40)
--- NOTE | 2019-09-01 11:05 | NUR ---
RN NOTE- ANXIETY PRESENT. ATIVAN 0.5 MG GIVEN
[2019-09-01 16:00] VITALS: BP 135/79
[2019-09-01] MEDS: DOCUSATE SODIUM 100 MG CAPSULE PO SCH (17:25)
--- NOTE | 2019-09-01 18:03 | NUR ---
RN NOTE- PT W DELUSIONAL THINKING, SOME PARANOIA AND ANXIETY. ATIVAN 0.5 MG GIVEN
[2019-09-01 20:25] VITALS: BP 135/70
[2019-09-02 08:00] VITALS: BP 155/72
[2019-09-02] MEDS: MINERAL OIL/PETROLATUM,WHITE 120 GM JAR TP SCH (09:00)
[2019-09-02] MEDS: LITHIUM CARBONATE (300 MG CAP) 300 MG CAPSULE PO SCH ×2 (09:03→21:29)
[2019-09-02] MEDS: risperiDONE 1 MG TABLET PO SCH ×2 (09:04→16:41)
[2019-09-02] MEDS: DIVALPROEX SODIUM 500 MG TABLET.DR PO SCH ×3 (09:04→16:41)
[2019-09-02] MEDS: AMLODIPINE BESYLATE 5 MG TABLET PO SCH (09:04)
[2019-09-02 16:00] VITALS: BP 141/77
[2019-09-02] MEDS: DOCUSATE SODIUM 100 MG CAPSULE PO SCH (17:30)
[2019-09-02 20:24] VITALS: BP 141/77
[2019-09-02 20:27] VITALS: BP 148/66
[2019-09-02] MEDS: TEMAZEPAM 7.5 MG CAPSULE PO PRN (21:29)
[2019-09-03 08:00] VITALS: BP 123/68
[2019-09-03] MEDS: DIVALPROEX SODIUM 500 MG TABLET.DR PO SCH ×2 (08:31→12:49)
[2019-09-03] MEDS: risperiDONE 1 MG TABLET PO SCH (08:31)
[2019-09-03] MEDS: LORAZEPAM 0.5 MG TABLET PO PRN (08:31)
[2019-09-03] MEDS: LITHIUM CARBONATE (300 MG CAP) 300 MG CAPSULE PO SCH (08:31)
[2019-09-03 08:33] VITALS: BP 123/68
[2019-09-03] MEDS: MINERAL OIL/PETROLATUM,WHITE 120 GM JAR TP SCH (08:46)
[2019-09-03] MEDS ORDERED: AMLODIPINE BESYLATE 5 MG TABLET PO SCH (09:00)
--- NOTE | 2019-09-03 10:43 | NUR ---
Family Contact: SW called the pts daughter in law, Catalina ([phone]), and informed her that the pt is going to be discharged to [facility] today. She accepted the placement.
--- NOTE | 2019-09-03 12:03 | NUR ---
Pt was discharged to [facility] located at [address] [place] [id number]; ([phone]). Pt was transported via [facility] at 3PM. Pt's daughter in law, Catalina ([phone]), is aware of the placement. Upon discharge, the pt appeared to be in a euthymic mood and presented with a calm affect. Pt appeared to be alert and oriented x4 (time, place self and situation). Pt denied both suicidal and homicidal ideation as well as auditory and visual hallucinations. Pt stated that she understands that she cannot be aggressive and needs to behave appropriately. Pt has fair insight and judgment. Pt was provided with smoking cessation referrals that are listed below. Pt will continue to be under the care of her psychiatrist, [place] [address] [address]; and will be under the care of his tank builder and erector, Dr. Magana, located at [address] [place] [address]; . Pt signed the choice of vendor form and interdisciplinary forms were signed. Smoking Cessation Referrals: [employer] [id number]-LUNGUSA [employer] [phone]
--- NOTE | 2019-09-03 13:29 | NUR ---
PATIENT IS A 54 YEAR OLD FEMALE DISCHARGED TO [facility]. PATIENT IS IN STABLE CONDITION. VSS. NO ACUTE DISTRESS NOTED. NO COMPLAINTS. COMPLIANT WITH MEDICATION MANAGEMENT. COOPERATIVE WITH PLAN OF CARE. PSYCHIATRIC TREATMENT PLANS MET. MEDICAL TREATMENT PLANS DEFERRED FOR CONTINUAL MONITORING. DENIES SI/HI AND VAH AT THE TIME OF DISCHARGE. SKIN CHECK DONE WITH WOUND PICTURES IN CHART. EDUCATED PATIENT ABOUT AFTERCARE WITH COPY PROVIDED. RETURNED PERSONAL BELONGINGS TO PATIENT. MEDICATIONS RECONCILED WITH DR MIRZA AND DR JEFFRIES. DISCHARGE PAPERWORK SIGNED. FOR FOLLOW UP WITH PSYCHIATRIST AND NIGHT BAKER WITHIN 1 WEEK. PATIENT LEFT THE [facility] VIA AMBULANCE AT 1330.
== END 2019-09-03 13:30 | DRG 885 ==
LOC: ER 13:54 → GPS 19:33
PROVIDERS: ADMIT Psychiatry & Neurology Psychiatry; ATTEND Nurse Practitioner Acute Care
DX: F25.0 Schizoaffective disorder, bipolar type (principal); E44.0 Moderate protein-calorie malnutrition; F29 Unspecified psychosis not due to a substance or known physiological condition; F41.9 Anxiety disorder, unspecified; I10 Essential (primary) hypertension; E88.09 Other disorders of plasma-protein metabolism, not elsewhere classified; Z68.25 Body mass index [BMI] 25.0-25.9, adult
CPT/HCPCS: 36415; 80048-TC; 80061-TC; 80076-TC; 80164-TC; 80305; 81000-TC; 82565-TC; 82962-TC; 84443-TC; 85025-TC; 87081-TC; G0480